=== PATIENT | female | born 1985 | race Caucasian/White ===

== ENCOUNTER 2019-05-23 18:19 | Inpatient (IN) | payer OTHER ==
[~2019-05-23] VITALS: Ht 170.2 cm; Wt 71.3 kg
--- NOTE | 2019-05-23 18:50 | PHYS DOC ---
Past History Past Medical History: Diabetes, Gallstones, Hypothyroid Past Surgical History: Smoking: Less than 1pk/day Alcohol Use: None Drug Use: None Adult General Chief Complaint Chief Complaint: NAUSEA/VOMITING/DIARRHEA HPI HPI Patient is a 34-year-old female presenting with dental pain upper left molar area supposed to get it pulled tomorrow but the pain has been so severe for the last 3 days she's been unable to take her insulin due to the tooth pain she tells me. She's having nausea 3 episodes of emesis really no chest pain no shortness of breath no abdominal pain no fever that she knows of no problems urinating no diarrhea just the severe nonradiating left upper molar pain sharp in nature denies abdominal pain denies chest pain. Review of Systems Review of Systems Constitutional: Denies fever or chills [] Eyes: Denies change in visual acuity, redness, or eye pain [] HENT: Denies nasal congestion or sore throat [] Respiratory: Denies cough or shortness of breath [] Musculoskeletal: Denies back pain or joint pain [] Integument: Denies rash or skin lesions [] Neurologic: Denies headache, focal weakness or sensory changes [] All other systems were reviewed and found to be within normal limits, except as documented in this note. Allergies Allergies Allergies Coded Allergies Type Severity Reaction Last Updated Verified No Known Drug Allergies 10/23/13 No Physical Exam Physical Exam Constitutional: Well developed, well nourished, no acute distress, non-toxic appearance. [] HENT: Normocephalic, atraumatic, bilateral external ears normal, oropharynx dry no oral exudates, nose normal. [] cracked tooth left upper molar area. no signs of facial swelling or edema. Eyes: PERRLA, EOMI, conjunctiva normal, no discharge. [] Neck: Normal range of motion, no tenderness, supple, no stridor. [] CardiovascularMILD TACHY NO MURMURS NOTED Lungs & Thorax: Bilateral breath sounds clear to auscultation []mild tachypnea Abdomen: Bowel sounds normal, soft, no tenderness, no masses, no pulsatile masses. [] Extremities: No tenderness, no cyanosis, no clubbing, ROM intact, no edema. [] Neurologic: Alert and oriented X 3, normal motor function, normal sensory function, no focal deficits noted. [] Current Patient Data Vital Signs * Mild Temperature (Fahrenheit): * 99.0 degrees F (97.6-99.5) Patient Temperature * 99.0 degrees F (97.5-99.5) Temperature Source * Oral Blood Pressure Systolic * 128 mm Hg (100-140) Blood Pressure Diastolic * 70 mm Hg (60-100) Blood Pressure Mean * 89 mm Hg Blood Pressure Location * Left Arm Blood Pressure Source * Automatic Cuff Pulse Rate * 112 beats per minute (60-90) H Pulse Assessment Method * Monitor Respiratory Rate * 24 breaths per minute (12-24) Oxygen Delivery Method * Room Air Lab Results Laboratory Tests Test 05/23/19 18:32 Glucose (Fingerstick) 499 mg/dL (70-99) H EKG EKG [] Radiology/Procedures Radiology/Procedures [] Course & Med Decision Making Course & Med Decision Making Pertinent Labs and Imaging studies reviewed. (See chart for details) []Diabetic ketoacidosis secondary to noncompliance with insulin. Apparently she's been having a cracked tooth causing severe pain limiting her ability to comply with her insulin regimen. Patient denies any chest pain or abdominal pain noted DKA on lab work insulin drip protocol has been ordered for ICU admission. I spoke with Dr. TESFAYE AT 810 PM ACCEPTS ADMIT. CXR AND EKG CURRENLTY PENDING Critical care time was 45 minutes exclusive of procedures. FOR MGMT OF DKA. Dragon Disclaimer Dragon Disclaimer This electronic medical record was generated, in whole or in part, using a voice recognition dictation system. Departure Departure: Impression: Primary Impression: Diabetic ketoacidosis Additional Impression: Toothache Disposition: ADMITTED INPATIENT Admitting Physician: Rafael Tesfaye Condition: GUARDED Referrals: JONATHAN VICTOR MD (PCP) Problem Qualifiers AGA WOLF MD May 23, 2019 18:50
[2019-05-23] MEDS ORDERED: IV NORMAL SALINE 1,000ML 1,000 ML IV ONE ×2 (19:00)
[2019-05-23] MEDS ORDERED: ONDANSETRON PF 4 MG/2 ML VIAL. IV ONE (19:00)
[2019-05-23] MEDS ORDERED: MORPHINE SULFATE 4 MG/ML DISP.SYRIN. IV ONE (19:00)
[2019-05-23 19:17] LABS: BASO # 0.1 x10^3/uL (0.0-0.2); BASO % 1 % (0-3); EOS % 0 % (0-3); HEMATOCRIT 41.2 % (36.0-47.0); HEMOGLOBIN 12.9 g/dL (12.0-15.5); LYMPH # 0.9 x10^3/uL (1.0-4.8); LYMPH % 8 % (24-48); MEAN CORPUSCULAR HEMOGLOBIN 27 pg (25-35); MEAN CORPUSCULAR HGB CONC 31 g/dL (31-37); MEAN CORPUSCULAR VOLUME 86 fL (79-100); MONO # 0.5 x10^3/uL (0.0-1.1); MONO % 4 % (0-9); NEUT # 10.1 x10^3uL (1.8-7.7); NEUT % 87 % (31-73); PLATELET COUNT 283 x10^3/uL (140-400); RED BLOOD COUNT 4.78 x10^6/uL (3.50-5.40); WHITE BLOOD COUNT 11.6 x10^3/uL (4.0-11.0)
[2019-05-23 19:22] LABS: AMPHETAMINE/METHAMPHETAMINE NEG (NEG); BARBITURATES NEG (NEG); BENZODIAZEPINES NEG (NEG); CANNABINOIDS NEG (NEG); COCAINE NEG (NEG); METHADONE NEG (NEG); OPIATES POS (NEG); PHENCYCLIDINE NEG (NEG)
[2019-05-23 19:27] LABS: BACTERIA,URINE 0 /HPF (0-FEW); BILIRUBIN,URINE NEG (NEG); CLARITY,URINE HAZY; COLOR,URINE STRAW; GLUCOSE,URINE 500 mg/dL (NEG); NITRITE,URINE NEG (NEG); RBC,URINE RARE /HPF (0-2); SQUAMOUS EPITHELIAL CELL,UR FEW /LPF; UROBILINOGEN,URINE 0.2 mg/dL (0.2 mg/dL); WBC,URINE 0 /HPF (0-4); YEAST,URINE PRESENT /HPF
[2019-05-23 19:29] LABS: ALBUMIN 4.2 g/dL (3.4-5.0); ALBUMIN/GLOBULIN RATIO 1.1 (1.0-1.7); CALCIUM 8.8 mg/dL (8.5-10.1); CREATININE 0.9 mg/dL (0.6-1.0); GFR 71.7; TOTAL BILIRUBIN 0.4 mg/dL (0.2-1.0); TOTAL PROTEIN 8.1 g/dL (6.4-8.2)
[2019-05-23 19:34] LABS: POTASSIUM 5.4 mmol/L (3.5-5.1)
[2019-05-23] MEDS ORDERED: IV DEXTROSE 5 %-0.45 % NACL 1,000 ML IV SCH (20:04)
[2019-05-23] MEDS ORDERED: IV NORMAL SALINE 1,000ML 1,000 ML IV SCH (20:04)
[2019-05-23 20:13] LABS: BGAS PH 7.11 (7.35-7.45)
[2019-05-23] MEDS ORDERED: POTASSIUM CHLORIDE 10MEQ 100 ML IV PRN ×4 (20:15)
[2019-05-23] MEDS ORDERED: MORPHINE SULFATE 4 MG/ML DISP.SYRIN. IV PRN ×2 (20:15→20:30)
[2019-05-23 21:29] VITALS: BP 137/81
--- NOTE | 2019-05-23 21:54 | EKG ---
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
[2019-05-23] MEDS ORDERED: AMOX500C PO (22:17)
[2019-05-23] MEDS ORDERED: LISI10TA2 PO (22:17)
[2019-05-23] MEDS ORDERED: LEVO125T5 PO (22:17)
[2019-05-23] MEDS ORDERED: INSU100V8 SQ (22:21)
[2019-05-23] MEDS ORDERED: [UNRECOGNIZED DRUG - OTHER] IV (22:26)
[2019-05-23] MEDS ORDERED: DEXTROSE 50% 25 GM / 50ML DISP.SYRIN. IV PRN (22:30)
[2019-05-23] MEDS: HYDROmorphone PF 1 MG/ML DISP.SYRIN IV PRN (22:51)
--- NOTE | 2019-05-23 22:53 | RAD ---
Study: CHEST AP ONLY Indication: Shortness of air. DKA. Comparison: None. Findings: Unremarkable cardiomediastinal silhouette and caleb. No lobar infiltrate, pleural effusion or pneumothorax. Impression: No acute radiographic abnormality of the chest. Electronically signed by: BRANDY BHATTI MD (05/23/2019 10:50 PM) [facility]
[2019-05-23] MEDS ORDERED: AMOXICILLIN 250 MG CAPSULE PO SCH (23:00)
[2019-05-23] MEDS ORDERED: INSULIN GLARGINE SYRINGE. SQ SCH (23:00)
[2019-05-23 23:09] LABS: CALCIUM 7.9 mg/dL (8.5-10.1); CREATININE 0.8 mg/dL (0.6-1.0); GFR 82.1; POTASSIUM 5.3 mmol/L (3.5-5.1)
[2019-05-23] MEDS: IV NORMAL SALINE 1,000ML 1,000 ML IV SCH (23:22)
[2019-05-24] VITALS (16 sets, daily range): BP systolic 112–138; BP diastolic 67–90
[2019-05-24] MEDS: IV NORMAL SALINE 1,000ML 1,000 ML IV SCH (01:31)
[2019-05-24] MEDS: HYDROmorphone PF 1 MG/ML DISP.SYRIN IV PRN ×6 (01:56→21:52)
[2019-05-24 02:57] LABS: CALCIUM 7.5 mg/dL (8.5-10.1); CREATININE 0.7 mg/dL (0.6-1.0); GFR 95.8; POTASSIUM 4.8 mmol/L (3.5-5.1)
[2019-05-24] MEDS ORDERED: ONDANSETRON PF 4 MG/2 ML VIAL. ONE (04:45)
[2019-05-24] MEDS ORDERED: ONDANSETRON PF 4 MG/2 ML VIAL. IVP PRN (05:00)
[2019-05-24] MEDS: LEVOTHYROXINE 125 MCG TABLET PO SCH (06:19)
[2019-05-24 06:27] LABS: CALCIUM 7.7 mg/dL (8.5-10.1); CREATININE 0.7 mg/dL (0.6-1.0); GFR 95.8; POTASSIUM 4.5 mmol/L (3.5-5.1)
[2019-05-24] MEDS ORDERED: INSULIN LISPRO 300 UNITS/3 ML VIAL. SQ SCH (08:00)
[2019-05-24] MEDS: POTASSIUM CL 20MEQ D5-0.45NACL 1,000 ML IV SCH ×3 (08:30→21:16)
[2019-05-24] MEDS: INSULIN REGULAR VIAL 100 UNIT in IV NORMAL SALINE 100ML 100 ML IV PRN ×2 (08:40→23:44)
[2019-05-24] MEDS: LISINOPRIL 10 MG TABLET PO SCH (08:41)
[2019-05-24] MEDS: LACTOBACILLUS RHAMNOSUS GG 1 CAPSULE. PO SCH ×2 (08:42→20:37)
[2019-05-24] MEDS: ONDANSETRON PF 4 MG/2 ML VIAL. IVP PRN ×3 (13:49→21:51)
[2019-05-24 14:00] LABS: CALCIUM 8.5 mg/dL (8.5-10.1); CREATININE 0.9 mg/dL (0.6-1.0); GFR 71.7; POTASSIUM 4.5 mmol/L (3.5-5.1)
[2019-05-24] MEDS: CLINDAMYCIN 600MG PREMIX 50 ML IV SCH ×2 (14:24→21:17)
--- NOTE | 2019-05-24 16:14 | HP ---
ADMIT DATE: 05/23/2019 HISTORY OF PRESENT ILLNESS: The patient is a 34-year-old female patient who presented to the Emergency Room with dental pain about left molar area, which was supposed to be well today, but the pain has been so severe for the last 3 days, she has been unable to take her insulin. Due to the tooth pain, she is having nausea, 3 episodes of emesis, but no chest pain or shortness of breath. No abdominal pain, no fever, but she knows of no problems urinating, has no diarrhea, just severe pain, her left upper molar pain, sharp in nature. She was extensively investigated in the Emergency Room, was found to have her blood sugar was 499. She was acidotic with serum bicarbonate of 8 and anion gap of 26. Her white cell count was 11,600. Her blood gas initially showed a pH of 7.11, pCO2 of 19, bicarb was 6, pO2 of 113 and oxygen saturation was 97% on FiO2 of 20%. Her urinalysis showed large amount of glucose and urea and large amount of ketones. There was a trace of blood, negative for nitrite or bilirubin, negative for leukocyte esterase, rare rbc's, no wbc's, no bacteria. Her test was negative. Her toxic screen was positive for opiates. The patient was admitted with severe pain involving her left upper molar tooth. She was found also in diabetic ketoacidosis. She was started on IV fluid and insulin drip as well as potassium supplement and was admitted for further evaluation and treatment. PAST MEDICAL HISTORY: Significant for type 1 diabetes mellitus. She has hypothyroidism, chronic kidney disease and cholelithiasis without acute cholecystitis. PAST SURGICAL HISTORY: Significant for 4 . ALLERGIES: She has no known drug allergies. MEDICATIONS: She is currently on following medications: Normally, she was on amoxicillin 500 mg 3 times a day, lisinopril 10 mg once a day, hydromorphone. She was on Lantus insulin 25 units at bedtime and levothyroxine 125 mcg daily. FAMILY HISTORY: She has 4 brothers, 2 older and 2 youngers, relatively healthy. Her father is still alive at age of 70 and healthy. Her mother is alive at age of 58 and has diabetes mellitus. SOCIAL HISTORY: She is , has 3 sons and 1 daughter. She smokes about a pack a day, does not drink alcohol or use any recreational drugs. 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 REVIEW OF SYSTEMS: The patient denied any blurring of vision, cataract, glaucoma. Denied any earache, tinnitus or sensorineural deafness. Denied any nosebleeds, stuffy nose or postnasal drip. Denied any sore throat, sore tongue, toothache, hoarseness of voice or difficulty swallowing. Did complain of recurrent bouts of nausea, vomiting, but denied any diarrhea or constipation. Denied any hematemesis, melena or hematochezia. Denied any dysuria, frequency or hematuria. Denied any chest pain, shortness of breath, orthopnea, paroxysmal nocturnal dyspnea. Denied any cough, phlegm or hemoptysis. PHYSICAL EXAMINATION: GENERAL: On arrival to the Emergency Room, the patient was slightly tachypneic, tachycardic, but there is no pallor, jaundice, cyanosis or thyromegaly. No jugular venous distention. No lower limb edema. VITAL SIGNS: Her heart rate was 112, blood pressure was 138/90, her temperature was 99, respiratory rate was 24, and oxygen saturation 100% on room air. HEAD, EYES, EARS, NOSE AND THROAT: Showed normocephalic, atraumatic. FACE: Examination of her face showed that she has marked swelling and tenderness mostly in the left upper molar area. NECK: Supple. HEART: Showed normal first and second heart sounds. No gallop or murmur. CHEST: Clear to auscultation. No crepitation or rhonchi. ABDOMEN: Distended, soft, nontender. NEUROLOGIC: She is awake, alert, responding appropriately. All cranial nerves intact. EXTREMITIES: She moves extremities without difficulty. She ambulates without assistance or assistive devices. LABORATORY DATA: Her lab work on admission showed a white cell count of 11,600, hemoglobin 13, hematocrit 41, MCV 86 and platelet count 283,000. Her chemistry on arrival showed serum sodium of 132, potassium 5.4, chloride 98, bicarbonate 8, anion gap of 26, BUN of 10, creatinine 0.9, estimated GFR was 72 mL per minute. Her glucose was 499, calcium was 8.8. Total bilirubin, AST, ALT, alkaline phosphatase were normal. Total protein was 8.1, albumin was 4.2. Her urinalysis showed the urine was straw colored, hazy, with a pH of 5.5, specific gravity 1.025 with small amount of protein, large amount of glucose, large amount of ketones. There was trace of blood, negative for nitrite or leukocyte esterase. There are no rbc's, no wbc's, and no bacteria. Her toxic screen was positive for opiates, but negative for methadone, barbiturates, phencyclidine, amphetamine, methamphetamine, benzodiazepine, cocaine, cannabinoids and alcohol. Her chest x-ray showed unremarkable cardiomediastinal silhouette and caleb. No lobar infiltrate, pleural effusion or pneumothorax. PLAN: To continue with IV fluid and insulin. Continue with all her medications including oral amoxicillin and we will decide further management accordingly. GANESH TESFAYE MD DR: LIZA/dasha JOB#: [id number] / [id number]
--- NOTE | 2019-05-24 16:23 | RAD ---
Study: CT maxillofacial without contrast INDICATION: Multiple periodontal abscesses. COMPARISON: None. TECHNIQUE: Axial CT imaging of the maxillofacial structures performed without the use of intravenous contrast. Coronal and sagittal reformats were obtained. One or more of the following individualized dose reduction techniques were utilized for this examination: 1. Automated exposure control 2. Adjustment of the mA and/or kV according to patient size 3. Use of iterative reconstruction technique. FINDINGS: Bones: No acute fracture. Temporomandibular joint alignment is maintained. Trace left maxillary sinus because thickening. Posterior more so than anterior and middle ethmoidal air cell mucosal thickening. Trace sphenoid sinus mucosal thickening. Normally aerated mastoid air cells and middle ears. Numerous missing teeth. Scattered dental caries such as involving the left first maxillary premolar and the second maxillary molar. Small periapical lucency involving the second maxillary molar on the left. The visualized cervical spine is intact. Soft tissues: Limited evaluation for an abscess without the use of intravenous contrast. Inflammatory changes centered along the left aspect of the maxilla. Inflammatory changes extend to involve the fat surrounding the left masseter. Inflammatory changes involve the left retroantral fat, extend into the left premalar region and extend inferiorly to approach the upper margin of the left hemimandible. Subtle asymmetric area of low attenuation along the buccal margin of the maxillary alveolus just anterior to the left first maxillary premolar as seen on image 25 series 3. Given proximity to the premolar cavity, a developing subperiosteal abscess is difficult to exclude. No obvious fluid collection seen elsewhere. No inflammatory changes involving the deep spaces of the neck. Unremarkable epiglottis. No suppurative adenopathy. Symmetric size and enhancement of the submandibular and parotid glands. IMPRESSION: 1. Dental caries involving the left second maxillary premolar and the left second maxillary molar. Small periapical lucency involving the left second maxillary molar. Subtle asymmetric area of low attenuation along the buccal margin of the maxillary alveolus just anterior to the second maxillary premolar (image 25 series 3) which could potentially represent a developing subperiosteal abscess though this is not definitive. Taking into consideration the absence of intravenous contrast, no definite drainable fluid collection is identified. 2. Superficial soft tissue inflammatory changes centered along the left aspect of the maxilla which could represent facial cellulitis in the appropriate clinical setting. Electronically signed by: BRANDY BHATTI MD (05/24/2019 4:19 PM) [place] [id number]
[2019-05-24 18:31] LABS: CALCIUM 8.5 mg/dL (8.5-10.1); CREATININE 0.8 mg/dL (0.6-1.0); GFR 82.1
--- NOTE | 2019-05-24 22:41 | PN ---
DATE: 05/24/2019 SUBJECTIVE: The patient has continued to do poorly. She continues to have severe anorexia and severe pain in her left upper molar tooth. She is unable to take anything by mouth, and therefore, we switched her to clindamycin 600 mg IV every 8 hours as well as continued her on IV fluid and pain management. When I saw her this afternoon, she was resting slightly propped up in bed, continued to show marked swelling of her left side of the face. She is markedly tender and erythematous. PHYSICAL EXAMINATION: VITAL SIGNS: Her heart rate was 103, blood pressure was 124/83, temperature was 98.5, respiratory rate was 17, and oxygen saturation was 100% on room air. HEAD, EYES, EARS, NOSE AND THROAT: Showed normocephalic, atraumatic. NECK: Supple. HEART: Showed normal first and second heart sounds. No gallop or murmur. CHEST: Clear to auscultation. No crepitation or rhonchi. ABDOMEN: Distended, soft, nontender. No guarding or rigidity. No organomegaly. All hernial orifices intact. Bowel sounds normal. NEUROLOGIC: She is awake, alert, responding appropriately. All cranial nerves intact. She moves extremities without difficulty. Her intake over the last 24 hours was 5215, no output was recorded. LABORATORY DATA: Her most recent lab work showed a serum sodium 131, potassium 4.5, chloride 103, bicarbonate 12, anion gap of 16, BUN 5, creatinine 0.9, estimated GFR was 72 mL per minute. Her glucose 218, calcium was 8.5. ASSESSMENT: In summary, this is a 34-year-old female patient who was admitted with diabetic ketoacidosis. She also has severe left upper molar and probably periodontal abscess. We switched her IV antibiotic to clindamycin 600 mg IV every 8 hours. Continue with IV fluid and insulin drip, and I will arrange for her to have a maxillofacial CT scan without contrast and we will decide on further management accordingly. GANESH TESFAYE MD DR: LIZA/dasha JOB#: [id number] / [id number]
[2019-05-25] VITALS (12 sets, daily range): BP systolic 90–133; BP diastolic 59–92
[2019-05-25] MEDS: HYDROmorphone PF 1 MG/ML DISP.SYRIN IV PRN ×2 (01:50→05:53)
[2019-05-25] MEDS: ONDANSETRON PF 4 MG/2 ML VIAL. IVP PRN ×2 (01:52→05:52)
[2019-05-25] MEDS: POTASSIUM CL 20MEQ D5-0.45NACL 1,000 ML IV SCH ×2 (04:23→08:41)
[2019-05-25] MEDS: LEVOTHYROXINE 125 MCG TABLET PO SCH (05:39)
[2019-05-25] MEDS: CLINDAMYCIN 600MG PREMIX 50 ML IV SCH ×3 (05:40→20:32)
[2019-05-25 06:05] LABS: HEMATOCRIT 37.3 % (36.0-47.0); HEMOGLOBIN 12.2 g/dL (12.0-15.5); RED BLOOD COUNT 4.55 x10^6/uL (3.50-5.40); RED CELL DISTRIBUTION WIDTH 14.5 % (11.5-14.5); WHITE BLOOD COUNT 9.9 x10^3/uL (4.0-11.0)
[2019-05-25 06:17] LABS: ALBUMIN 3.1 g/dL (3.4-5.0); ALBUMIN/GLOBULIN RATIO 0.8 (1.0-1.7); CALCIUM 8.6 mg/dL (8.5-10.1); CREATININE 0.6 mg/dL (0.6-1.0); GFR 114.4; POTASSIUM 3.5 mmol/L (3.5-5.1); TOTAL BILIRUBIN 0.2 mg/dL (0.2-1.0); TOTAL PROTEIN 7.2 g/dL (6.4-8.2)
[2019-05-25] MEDS ORDERED: INSU100I17 SQ (08:22)
[2019-05-25] MEDS: INSULIN LISPRO 300 UNITS/3 ML VIAL. SQ SCH ×5 (08:30→20:32)
[2019-05-25] MEDS: LISINOPRIL 10 MG TABLET PO SCH (08:34)
[2019-05-25] MEDS: LACTOBACILLUS RHAMNOSUS GG 1 CAPSULE. PO SCH ×2 (08:34→20:29)
[2019-05-25] MEDS: IV NORMAL SALINE 1,000ML 1,000 ML IV SCH ×2 (08:35→14:17)
[2019-05-25] MEDS: KETOROLAC 30 MG/ML VIAL. IVP PRN ×3 (08:36→21:18)
[2019-05-25] MEDS ORDERED: INSULIN ASPART 12 UNIT SQ SCH (11:30)
[2019-05-25] MEDS ORDERED: DEXTROSE 50% 25 GM / 50ML DISP.SYRIN. IV PRN (16:30)
[2019-05-25] MEDS: OXYMETAZOLINE 0.05% NASAL SPRAY 15ML BOTTLE. NS SCH (20:28)
[2019-05-25] MEDS: INSULIN GLARGINE SYRINGE. SQ SCH (20:31)
[2019-05-26 00:29] VITALS: BP 97/66
--- NOTE | 2019-05-26 00:45 | PN ---
DATE: 05/25/2019 SUBJECTIVE: The patient is sitting propped up in bed, no apparent distress. She is feeling much better. She is now eating and drinking. We stopped the insulin drip. The swelling of her face is subsiding, but not completely resolved and she is afebrile and able to eat and drink. OBJECTIVE: GENERAL: When I saw her this afternoon, she looked well and was clearly in no apparent respiratory distress. No pallor, jaundice, cyanosis or thyromegaly. No jugular venous distention. No lower limb edema. VITAL SIGNS: Her heart rate was 85, blood pressure was 111/72, temperature was 98.4, respiratory rate was 16 and oxygen saturation was 97%. HEAD, EYES, EARS, NOSE AND THROAT: Showed normocephalic. She has definitely marked swelling on the left side of her face with some faint erythema, although it seemed to be much better than yesterday. NECK: Supple. HEART: Showed normal first and second heart sounds. No gallop or murmur. CHEST: Clear to auscultation. No crepitation or rhonchi. ABDOMEN: Distended, soft, nontender. No guarding or rigidity. No organomegaly. All hernial orifice intact. Bowel sounds normal. NEUROLOGIC: She was awake, alert, responding appropriately. All cranial nerves intact. She moves extremities without difficulty. She ambulates without assistance or assistive devices. Her intake was 3200, output was 3100. LABORATORY DATA: Her lab work this morning showed a white cell count 9900, hemoglobin 12, hematocrit 37, MCV 82 and platelet count 273,000. Her chemistry this morning showed a serum sodium 134, potassium 3.5, chloride 106, bicarbonate 18, anion gap of 10, BUN 3, creatinine 0.6, estimated GFR was 114 mL per minute. Her glucose 123, calcium was 8.6. Total bilirubin, AST, ALT and alkaline phosphatase were normal. Total protein 7.2, albumin was 3.1. Urinalysis showed that she has large amount of glucose and small amount of protein. ASSESSMENT: 1. Severe periodontitis and periodontal abscess for which she is now on IV clindamycin 600 mg IV q. 8 hourly. 2. Diabetic ketoacidosis for which she was on insulin drip. She is now back on her regular regimen. 3. Her other medical problems include type 1 diabetes mellitus, hypothyroidism, chronic kidney disease and cholelithiasis with acute cholecystitis. PLAN: Obviously to continue to monitor her blood sugar and adjust her insulin as needed. Continue with IV clindamycin. We will evaluate her again tomorrow. If the swelling and redness has subsided, we might be able to discharge her home to continue on oral clindamycin as she has an appointment to be seen by oral surgeon on 05/31. GANESH TESFAYE MD DR: LIZA/dasha JOB#: [id number] / [id number]
[2019-05-26] MEDS: KETOROLAC 30 MG/ML VIAL. IVP PRN ×3 (04:18→20:02)
[2019-05-26] MEDS: INSULIN LISPRO 300 UNITS/3 ML VIAL. SQ SCH ×8 (04:23→21:01)
[2019-05-26] MEDS: LEVOTHYROXINE 125 MCG TABLET PO SCH (06:11)
[2019-05-26] MEDS: CLINDAMYCIN 600MG PREMIX 50 ML IV SCH ×3 (06:11→22:33)
[2019-05-26 06:14] VITALS: BP 95/60
[2019-05-26 06:50] LABS: HEMATOCRIT 31.6 % (36.0-47.0); HEMOGLOBIN 10.5 g/dL (12.0-15.5); RED BLOOD COUNT 3.89 x10^6/uL (3.50-5.40); RED CELL DISTRIBUTION WIDTH 14.7 % (11.5-14.5); WHITE BLOOD COUNT 5.8 x10^3/uL (4.0-11.0)
[2019-05-26 07:02] LABS: CALCIUM 8.2 mg/dL (8.5-10.1); CREATININE 0.8 mg/dL (0.6-1.0); GFR 82.1; POTASSIUM 3.7 mmol/L (3.5-5.1)
[2019-05-26] MEDS: LACTOBACILLUS RHAMNOSUS GG 1 CAPSULE. PO SCH ×2 (08:01→20:02)
[2019-05-26] MEDS: LISINOPRIL 10 MG TABLET PO SCH (08:15)
[2019-05-26] MEDS: OXYMETAZOLINE 0.05% NASAL SPRAY 15ML BOTTLE. NS SCH ×2 (08:15→20:02)
[2019-05-26 10:53] VITALS: BP 105/75
[2019-05-26] MEDS: oxyCODONE IR 5 MG TABLET PO PRN (15:34)
[2019-05-26 15:53] VITALS: BP 106/73
[2019-05-26 20:57] VITALS: BP 113/77
[2019-05-26] MEDS: INSULIN GLARGINE SYRINGE. SQ SCH (21:01)
--- NOTE | 2019-05-26 22:45 | PN ---
DATE: 05/26/2019 SUBJECTIVE: The patient is sitting slightly propped up in bed, in no apparent distress. She is obviously much improved, although she continued to have pain and swelling on the left side of her face and her left ear. The redness is fading slowly. She is now able to eat and drink. PHYSICAL EXAMINATION: GENERAL: When I examined her, she was slightly pale, but not jaundice, cyanosed or thyromegaly. No jugular venous distention. No limb edema. VITAL SIGNS: Her heart rate was 101, blood pressure was 126/82, temperature was 99, respiratory rate was 16, and oxygen saturation was 99% on room air. HEAD, EYES, EARS, NOSE AND THROAT: Showed normocephalic. Continued to have some soft tissue swelling and tenderness in the left side of the face over the left maxillary sinus, tenderness also in her left ear. The erythema is subsiding slowly. NECK: Supple. CARDIAC: Normal first and second heart sounds. No gallop or murmur. CHEST: Clear to auscultation. No crepitation or rhonchi. ABDOMEN: Distended, soft, nontender. NEUROLOGIC: She was definitely more awake, alert, responding appropriately. All cranial nerves intact. She moves extremities without difficulty. She ambulates without assistance or assistive devices. Her intake was 3200, output was 3100. LABORATORY DATA: As of this morning, her white cell count was 5800, hemoglobin 10, hematocrit 32, MCV 81 and platelet count 228,000. Serum sodium was 138, potassium 3.7, chloride 109, bicarbonate 16, anion gap of 13, BUN 14, creatinine 0.8, estimated GFR was 82 mL per minute. Her glucose was 194, calcium was 8.2. ASSESSMENT: 1. Severe periodontitis and dental abscess for which she is now on IV clindamycin 600 mg IV q. 8 hourly and responding gradually. 2. Diabetic ketoacidosis for which she was on insulin drip. She is now back on her regular insulin. 3. She has multiple other medical problems including: A. Type 1 diabetes mellitus. B. Hypothyroidism. C. Chronic kidney disease. D. Cholelithiasis without acute cholecystitis. PLAN: To continue with IV clindamycin. Continue to monitor her blood sugar and adjust insulin as needed. Continue with pain management. I did start her on oxycodone 5 mg immediate release every 4 hours as needed, and hopefully tomorrow, we can discharge her home on oral clindamycin and oral pain medication, to see her oral surgeon on 05/31/2019. GANESH TESFAYE MD DR: LIZA/dasha JOB#: [id number] / [id number]
[2019-05-27 00:35] VITALS: BP 94/71
[2019-05-27] MEDS: LEVOTHYROXINE 125 MCG TABLET PO SCH (05:47)
[2019-05-27] MEDS: CLINDAMYCIN 600MG PREMIX 50 ML IV SCH (05:47)
[2019-05-27 06:07] VITALS: BP 112/76
[2019-05-27] MEDS: KETOROLAC 30 MG/ML VIAL. IVP PRN (08:14)
[2019-05-27] MEDS: oxyCODONE IR 5 MG TABLET PO PRN (08:14)
[2019-05-27 08:15] VITALS: BP 112/76
[2019-05-27] MEDS: LISINOPRIL 10 MG TABLET PO SCH (08:15)
[2019-05-27] MEDS: LACTOBACILLUS RHAMNOSUS GG 1 CAPSULE. PO SCH (08:15)
[2019-05-27] MEDS: INSULIN LISPRO 300 UNITS/3 ML VIAL. SQ SCH ×2 (08:24→08:25)
[2019-05-27] MEDS: OXYMETAZOLINE 0.05% NASAL SPRAY 15ML BOTTLE. NS SCH (08:27)
[2019-05-27] MEDS ORDERED: OXYC5TAB4 PO (10:39)
[2019-05-27] MEDS ORDERED: CLIN300C8 PO (10:39)
--- NOTE | 2019-05-27 11:18 | DS ---
DATE OF DISCHARGE: HOSPITAL COURSE: The patient is a 34-year-old female patient who was admitted with severe dental caries and left facial cellulitis. She was in severe pain. She was unable to eat and drink and she presented with diabetic ketoacidosis, which was started on IV fluid and insulin drip. We did switch her to IV clindamycin and she did actually extremely well. Her white cell count has steadily improved such that she is today 5800. She has remained afebrile. Her blood sugar is much improved. Now, she is back on her usual insulin regimen and she has had an appointment with her oral surgeon on 05/31/2019. We have spoken with him and he wanted her to continue on clindamycin up until the appointment date and therefore, the patient was discharged home to continue with oral clindamycin. PHYSICAL EXAMINATION: GENERAL: When I saw her today, she looked well and was clearly in no apparent respiratory distress. She was slightly pale, but no jaundice, cyanosis or thyromegaly. No jugular venous distension. No limb edema. VITAL SIGNS: Her heart rate was 82, blood pressure was 112/76, temperature 98.3, respiratory rate was 18 and oxygen saturation was 97%. HEAD, EYES, EARS, NOSE AND THROAT: Showed that the soft tissue swelling and erythema on his left side of the face has largely resolved. NECK: Supple. HEART: Showed normal first and second heart sounds. No gallop or murmur. CHEST: Clear to auscultation. No crepitation or rhonchi. ABDOMEN: Distended, soft, nontender. NEUROLOGIC: She was awake, alert, responding appropriately. All cranial nerves are intact. She moves extremities without difficulty. Her intake was 2800, output was 800. LABORATORY DATA: This morning showed a white cell count 5800, hemoglobin 10.5, hematocrit 31.6, MCV 81 and platelet count 228,000. Her serum sodium was 138, potassium 3.7, chloride 109, bicarbonate 16, anion gap of 13, BUN 14, creatinine 0.8, estimated GFR was 82 mL per minute. Her toxic screen was positive for opiates. Urinalysis was essentially unremarkable. DISCHARGE MEDICATIONS: The patient was discharged home to continue on clindamycin 300 mg two times a day for 7 more days, oxycodone immediate release 5 mg every 4 hours as needed. She should continue on her NovoLog insulin 12 units 4 times a day before meals and at bedtime, Lantus insulin 25 units at bedtime, levothyroxine sodium 125 mcg once a day, lisinopril 10 mg once a day. FINAL DISCHARGE DIAGNOSES: 1. Severe dental caries and left facial cellulitis responded well to IV clindamycin. We will continue with oral clindamycin. 2. Diabetic ketoacidosis, resolved. 3. Type 1 diabetes mellitus. 4. Hypothyroidism. 5. Chronic kidney disease. 6. Choledocholithiasis without acute cholecystitis. GANESH TESFAYE MD DR: LIZA/dasha JOB#: [id number] / [id number]
== END 2019-05-27 11:01 | disposition home or self-care (01) | DRG 871 ==
LOC: ER 18:19 → 1 SOUTH 19:00 → INTOOBSV 19:00 → OBSVTOIN 19:00 → ICU 05-24 09:27 → 1 SOUTH 05-25 16:05
PROVIDERS: ADMIT Internal Medicine; ATTEND Internal Medicine
DX: A41.9 Sepsis, unspecified organism (principal); E10.10 Type 1 diabetes mellitus with ketoacidosis without coma; L03.211 Cellulitis of face; K04.7 Periapical abscess without sinus; K02.9 Dental caries, unspecified; E03.9 Hypothyroidism, unspecified; E10.22 Type 1 diabetes mellitus with diabetic chronic kidney disease; N18.9 Chronic kidney disease, unspecified; F17.210 Nicotine dependence, cigarettes, uncomplicated; K80.70 Calculus of gallbladder and bile duct without cholecystitis without obstruction; K05.30 Chronic periodontitis, unspecified; Z98.891 History of uterine scar from previous surgery; Z83.3 Family history of diabetes mellitus; Z79.4 Long term (current) use of insulin
CPT/HCPCS: 36415; 36600; 70486; 71045; 80048; 80053; 80307; 81001; 81025; 82803; 82947; 85025; 85027; 93005; 96361; 96374; 96375; 96376; 99406; J1170; J1815; J1885; J2270; J2405; J3490; 99291-25; J7030